=== PATIENT | male | born 1980 | race Caucasian/White ===

== ENCOUNTER 2020-11-05 15:55 | Emergency (ER) | payer OTHER, SELFPAY | END 2020-11-05 18:15 | disposition left against medical advice (07) | PROVIDERS: Emergency Provider Emergency Medicine | DX: M79.673 Pain in unspecified foot (principal) | CPT/HCPCS: 92921; 99281 ==

== ENCOUNTER 2020-11-06 06:15 | Emergency (ER) | payer OTHER, SELFPAY ==
--- NOTE | ~2020-11-06 | XR_ITS ---
EXAMINATION: XR FOOT, LEFT CLINICAL INFORMATION: Left foot pain without trauma COMPARISON: None TECHNIQUE: AP, lateral, and oblique views of the left foot. FINDINGS: There is no evidence of acute fracture or dislocation of the left foot. There is a small plantar calcaneal spur present. Joint spaces are maintained. No significant soft tissue swelling appreciated. XR/XR foot LT min 3V IMPRESSION: Small plantar calcaneal spur. Otherwise no significant bony abnormality of the left foot identified.
[2020-11-06 06:35] VITALS: BP 141/65; PULSE 63; RESP 16; TEMP 36.7; O2SAT 100; BMI 25.1
--- NOTE | 2020-11-06 06:56 | ED.EXTPRO ---
HPI - Extremity Problem General Chief complaint: Extremity Problem Stated complaint: FOOT PAIN Time Seen by Provider: 11/06/20 06:55 Source: patient Mode of arrival: ambulatory Limitations: no limitations History of Present Illness HPI Narrative: 39-year-old male came in for evaluation of left foot pain. Left foot pain started 4 days ago, described it as dull aching pain at the top of the left foot with no radiation, pain is constant, no other associated symptoms in particular no fever or chills, patient declined any history of trauma to the left foot. Movement and walking makes the pain worse nothing make it better. Never had similar pain in the past. Patient has been using [id number] pain medication and rubbing it with anti-inflammatory ointment with no relief. Patient declined history of gout. Related Data Previous Rx's Medication Instructions Recorded indomethacin 25 mg PO TID #20 cap 11/06/20 Allergies Allergy/AdvReac Type Severity Reaction Status Date / Time No Known Allergies Allergy Unverified 04/01/20 17:30 Review of Systems Review of Systems: All other systems are reviewed and are negative Constitutional: Reports as per HPI and Reports no additional constitutional complaints Eyes: Reports as per HPI and Reports no additional eye complaints Reports system reviewed and no additional complaints, except as documented Cardiovascular: Reports as per HPI and Reports no additional cardiovascular complaints Respiratory: Reports as per HPI and Reports no additional respiratory complaints Gastrointestinal: Reports as per HPI and Reports no additional gastrointestinal complaints Genitourinary: Reports no additional female genitourinary complaints Musculoskeletal: Reports no additional musculoskeletal complaints Skin/Breast: Reports system reviewed and no additional complaints, except as docu Psychiatric: Reports no additional psychiatric complaints Endocrine: Reports no additional endocrine complaints Hematologic/Lymphatic: Reports no additional hematologic/lymphatic complaints Allergic/Immunologic: Reports no additional allergic/immunologic complaints Reports system reviewed and no additional complaints, except as documented and Reports Abnormal speech present [facility] Social History Social History Advance Directives: No Advance Directives Information Provided: No Physical Exam Vital Signs: Vital Signs: Last Vital Signs Temp 98.0 F 11/06/20 06:35 Pulse 71 11/06/20 08:28 Resp 16 11/06/20 06:35 BP 137/79 11/06/20 08:28 Pulse Ox 96 11/06/20 07:20 Body Mass Index 25.1 Vital signs have been reviewed as appeared to be correct. Blood pressure is elevated. Heart rate normal. Respiration rate normal. Temperature normal. Oxygen saturation normal. Appearance: Alert. Oriented X3. No acute distress. Head: Normal external exam. Normocephalic. Atraumatic. No Swanson signs noted. No raccoon eyes noted Eyes: PERRLA. EOMI. Conjunctiva and sclera normal. Eyelids normal. ENT: TM's Normal. Pharynx normal. Uvula midline. Moist mucous membranes. No trismus noted. No drooling noted. No muffled voice noted. Neck: Normal inspection. Neck supple. FROM. No adenopathy. Thyroid Normal. No meningeal signs. No neck mass noted. CVS: Normal heart rate and rhythm. Heart sound normal. No murmurs noted. Pulses normal throughout. Respiratory: No respiratory distress. Painless inspiration. Breath sounds normal. No wheezes/rales/rhonchi noted. Chest nontender. No accessory muscle usage noted or decreased air movement noted. Abdomen: Soft and nontender. Bowel sounds normal in all 4 quadrants. No distention noted. No organomegaly noted. No visible injury noted. Back: No CVA tenderness. Full range of motion noted. Skin: Skin warm and dry. Normal skin color. Normal skin turgor. No rashes/lesions/lacerations noted. Extremities: No lower extremity edema. Tenderness over the dorsum aspect of left foot in the metatarsal area mostly over 1st and 2nd metatarsal area. No redness or hotness, no tenderness over the base of the big toe. Neuro: Oriented X 3. No motor deficit. No sensory deficit. Reflexes normal. Course Course Course Narrative: Assessment and plan. 39-year-old male no history of trauma presented with left foot pain for the past 4 days, x-ray was unremarkable for acute bony abnormalities, physical exam is more consistent with either atypical gout arthritis. Discharge the patient on NSAIDs, elevation, ice, rest. MDM - Extremity (Nontraumatic) Imaging Data Left foot x-ray: Radiologist's impression: Small plantar calcaneal spur. Otherwise no significant bony abnormality of the left foot identified. Discharge Plan Discharge Clinical Impression: Gout Patient Disposition: Home, Self-Care Instructions: Gout (ED) Prescriptions: New indomethacin 25 mg capsule 25 mg PO TID Qty: 20 RF: 0 Referrals: Physician,None [Primary Care Provider] - 2 days Stand Alone Forms: Work/School Release
[2020-11-06] MEDS: Ibuprofen 800 MG TABLET PO (07:17)
[2020-11-06 07:20] VITALS: BP 139/99; PULSE 72; O2SAT 96
[2020-11-06 08:28] VITALS: BP 137/79; PULSE 71
[2020-11-06] MEDS: predniSONE 20 MG TABLET 60 MG PO (09:03)
== END 2020-11-06 09:18 | disposition home or self-care (01) ==
PROVIDERS: Emergency Provider Emergency Medicine
DX: M79.672 Pain in left foot (principal); M10.9 Gout, unspecified; M77.32 Calcaneal spur, left foot
CPT/HCPCS: 73630; 99283; 99284